=== PATIENT | male | born 1995 | race Two or more races ===

== ENCOUNTER 2022-02-24 16:25 | Emergency (ER) | payer OTHER ==
[~2022-02-24] VITALS: Ht 180.3 cm; Wt 99.8 kg
[2022-02-24] MEDS ORDERED: TDAP DIPH,PERTUSS,TET VAC/PF 0.5 ML DISP.SYRIN IM ONE ×2 (16:37→16:45)
[2022-02-24] MEDS ORDERED: LIDOCAINE HCL 1% 20 ML VIAL ONE (16:43)
[2022-02-24] MEDS ORDERED: LIDOCAINE HCL 1% 20 ML VIAL IJ ONE (16:45)
[2022-02-24] MEDS ORDERED: AMOX-430 PO (17:48)
[2022-02-24 18:02] VITALS: BP 127/84
--- NOTE | 2022-02-24 18:02 | NUR ---
Patient discharged to home in stable condition. Written and verbal after care instructions given. Patient verbalizes understanding of instructions. Stressed follow up or return to ER for worsening s/s.
== END 2022-02-24 18:24 | disposition home or self-care (01) ==
LOC: ER 16:25
DX: S61.452A Open bite of left hand, initial encounter (principal); W54.0XXA Bitten by dog, initial encounter; Y92.89 Other specified places as the place of occurrence of the external cause
CPT/HCPCS: 99283; 12001; 73130; 90715; 90471; J3490; A4663